=== PATIENT | male | born 2000 | race Caucasian/White ===

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

== ENCOUNTER 2022-04-17 02:23 | Emergency (ER) | payer OTHER ==
[2022-04-17 02:44] VITALS: BP 131/81; PULSE 85; RESP 18; TEMP 98.2; BMI 31.2
[2022-04-17] MEDS ORDERED: LIDOCAINE VISCOUS 2% ORAL/TOP 15 ML UNIT-DOSE CUP MM ONE (03:28)
[2022-04-17] MEDS ORDERED: BUPIVACAINE HCL/PF 0.5% (5 MG/ML) 30 ML VIAL IJ ONE (03:29)
[2022-04-17] MEDS ORDERED: BUPIVACAINE HCL/PF 0.5% (5MG/ML) 10 ML VIAL ONE (03:33)
[2022-04-17] MEDS ORDERED: LIDOCAINE VISCOUS 2% ORAL/TOP 15 ML UNIT-DOSE CUP ONE (03:34)
== END 2022-04-17 04:09 | disposition home or self-care (01) ==
LOC: JER 02:23
DX: K08.89 Other specified disorders of teeth and supporting structures (principal)
CPT/HCPCS: 99283-25